=== PATIENT | female | born 1985 | race Caucasian/White ===

== ENCOUNTER → 2017-06-01 | Outpatient (CLI) | payer BC | LOC: GMAM 16:49 | PROVIDERS: ATTEND Family Medicine | DX: L65.8 Other specified nonscarring hair loss (principal) ==

== ENCOUNTER → 2017-06-03 | Outpatient (CLI) | payer BC | LOC: GMAM 11:24 | PROVIDERS: ATTEND Family Medicine | DX: R94.6 Abnormal results of thyroid function studies (principal); L65.8 Other specified nonscarring hair loss ==

== ENCOUNTER → 2017-06-17 | Outpatient (CLI) | payer BC | LOC: GMAM 12:17 | PROVIDERS: ATTEND Family Medicine | DX: M25.50 Pain in unspecified joint (principal) ==

== ENCOUNTER → 2017-12-07 | Outpatient (CLI) | payer BC | LOC: GMAM 16:44 | PROVIDERS: ATTEND Family Medicine | DX: R94.6 Abnormal results of thyroid function studies (principal); E55.9 Vitamin D deficiency, unspecified ==

== ENCOUNTER → 2019-11-02 | Outpatient (CLI) | payer BC | LOC: GMAM 10:58 | PROVIDERS: ATTEND Family Medicine | DX: R00.2 Palpitations (principal) ==

== ENCOUNTER → 2019-12-11 | Outpatient (CLI) | payer BC | LOC: GMAM 14:19 | PROVIDERS: ATTEND Family Medicine | DX: E55.9 Vitamin D deficiency, unspecified (principal) ==